=== PATIENT | male | born 1960 | race Caucasian/White ===

== ENCOUNTER 2024-12-06 09:14 | Outpatient (CLI) | payer OTHER | END 2024-12-06 09:15 | disposition home or self-care (01) | LOC: CSHSLEEP 09:14 | PROVIDERS: ATTEND Otolaryngology Otolaryngic Allergy | DX: G47.33 Obstructive sleep apnea (adult) (pediatric) (principal); R53.83 Other fatigue | CPT/HCPCS: 95811 ==

== ENCOUNTER 2025-01-11 09:31 | Outpatient (CLI) | payer OTHER ==
[2025-01-11 10:21] LABS: Hematocrit 41.2 % (38.8-50.0); Hemoglobin 14.3 g/dL (13.5-17.5)
[2025-01-11 11:47] LABS: Anion Gap 11 mmol/L (10-20); BUN (Urea Nitrogen) 14 mg/dL (8.4-25.7); Calc. Creatinine Clearance 0 mL/min (70-130); Calcium 9.1 mg/dL (7.8-10.44); Carbon Dioxide 27 mmol/L (23-31); Chloride 104 mmol/L (98-107); Glucose 85 mg/dL (80-115); Potassium 4.1 mmol/L (3.5-5.1); Sodium 138 mmol/L (136-145)
== END 2025-01-11 09:32 | disposition home or self-care (01) ==
LOC: CSHLAB 09:31
PROVIDERS: ATTEND Otolaryngology Otolaryngic Allergy
DX: Z01.818 Encounter for other preprocedural examination (principal); G47.33 Obstructive sleep apnea (adult) (pediatric); Z68.31 Body mass index [BMI] 31.0-31.9, adult
CPT/HCPCS: 80048; 85014; 85018; 93005; 93010